=== PATIENT | male | born 1985 | race Caucasian/White ===

== ENCOUNTER 2019-11-11 15:24 | Outpatient (CLI) | payer BC, SELFPAY ==
--- NOTE | 2019-11-11 16:00 | XR_ITS ---
WS: [id number] Orbits, 2 views. HISTORY: Evaluate for metal prior to MRI. No metallic foreign bodies are identified over the orbits or globes. XR/XR eye foreign body [id number] IMPRESSION: No metallic foreign body.
--- NOTE | 2019-11-11 16:45 | MRR_ITS ---
PROCEDURE INFORMATION: Exam: MR Cervical Spine Without Contrast Exam date and time: 11/11/2019 4:07 PM Age: 34 years old Clinical indication: Neck pain; Prior surgery; Surgery type: Tonsils; Additional info: Pain, chronic TECHNIQUE: Imaging protocol: Multiplanar magnetic resonance images of the cervical spine without contrast. COMPARISON: CR Cervical Spine 5 views [id number] 11/03/2018 2:46 PM FINDINGS: Vertebrae: Unremarkable. Spinal cord: Normal signal. No cord compression. 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 There is no disc herniation or foraminal stenosis. C3-C4: There is mild posterior bulging of the C3-C4 disc without focal herniation, or sagittal or foraminal stenosis. C4-C5: No significant disc disease. No significant spinal stenosis. C5-C6: Which there is decreased height of the disc and mild reactive changes in the superior endplate of C6. There is mild diffuse posterior bulging of the disc and there is some uncovertebral hypertrophy more on the right than on the left with mild central canal stenosis narrowing the sagittal diameter of the canal to approximately 9 mm and slight flattening the anterior surface of the cord but no significant cord compression. There is moderate foraminal narrowing on both sides more on the right than on the left. C6-C7: There is severe disc space narrowing and reactive changes in the adjacent endplates with disc osteophyte complex which causes mild central canal stenosis narrowing the sagittal diameter canal to approximately 9 mm without significant cord compression. There is moderate foraminal narrowing on both sides more on the right than on the left. C7-T1: No significant disc disease. No significant spinal stenosis. Vertebral arteries: Expected flow voids in the vertebral arteries. Soft tissues: Unremarkable. MR/MR cervical spin wo con* [id number] IMPRESSION: 1. Degenerative disc changes in the lower cervical spine with mild central canal and foraminal stenosis at C5-C6 and C6-C7. 2. No acute disc herniation is identified. 3. Congenital fusion of C2 and C3
== END 2019-11-11 15:25 | disposition home or self-care (01) ==
LOC: RADSHAW 15:28
PROVIDERS: Family Provider Family Medicine; PCP Family Medicine; Visit Provider Family Medicine
DX: M54.2 Cervicalgia (principal); M43.22 Fusion of spine, cervical region; T15.92XA Foreign body on external eye, part unspecified, left eye, initial encounter; T15.91XA Foreign body on external eye, part unspecified, right eye, initial encounter; X58.XXXA Exposure to other specified factors, initial encounter
CPT/HCPCS: 70030; 72141

== ENCOUNTER → 2020-01-06 08:26 | Outpatient (BNVA) | payer BC, SELFPAY | PROVIDERS: Family Provider Family Medicine; PCP Family Medicine; Referring Provider Licensed Practical Nurse; Visit Provider Anesthesiology Pain Medicine | DX: M48.02 Spinal stenosis, cervical region (principal); M50.020 Cervical disc disorder with myelopathy, mid-cervical region, unspecified level; M47.812 Spondylosis without myelopathy or radiculopathy, cervical region; M43.10 Spondylolisthesis, site unspecified; Z79.891 Long term (current) use of opiate analgesic | CPT/HCPCS: 99205 ==

== ENCOUNTER → 2023-03-12 15:33 | Outpatient (BNVA) | payer BC, SELFPAY | PROVIDERS: Family Provider Family Medicine; PCP Family Medicine; Referring Provider Nurse Practitioner Family; Visit Provider Physician Assistant | DX: M54.2 Cervicalgia (principal) | CPT/HCPCS: 72050 ==

== ENCOUNTER 2023-04-08 08:58 | Outpatient (CLI) | payer BC, SELFPAY ==
--- NOTE | 2023-04-08 09:10 | MR_ITS ---
WS: [id number] MRI CERVICAL SPINE NONCONTRAST HISTORY: neck pain COMPARISON: 11/11/2019 and radiographs 03/12/2023 Technique: Multiplanar, multisequence noncontrast imaging of the cervical spine. Straightening and reversal of the normal cervical lordosis. Disc spaces are narrowed. Most significant narrowing at C5-6 and C6-7. Partial congenital fusion at C 2-3. Marrow edema throughout the C5 and C6 vertebral bodies. C5 retrolisthesis by 3.4 mm. Mild cervic al cord deformity at C5-6 due to the retrolisthesis. No definite myelomalacia. Craniocervical junction, C1 and C2 relationship, odontoid process and soft tissues are normal. C2-C3: Normal. C3-C4: Mild osteophytic ridging and facet arthritis. Very mild central and foraminal narrowing. No si gnificant stenosis. C4-C5: Mild osteophytic ridging. No stenosis. C5-C6: Osteophytic ridging with annular disc bulging. Osteophyte and disc encroachment upon the ventr al thecal sac with deformity resulting in moderate to severe central and bilateral foraminal stenosis . Mild facet arthritis. C6-C7: Osteophytic ridging with annular disc bulging. There is disc and osteophyte encroachment upon the central canal. Moderate to severe central and RIGHT foraminal stenosis. Severe LEFT foraminal darrion nosis due to disc osteophyte disease. C7-T1: No stenosis. Paraspinal soft tissue are normal. MR/MR cervical spin wo con* [id number] IMPRESSION: 1. Progression of cervical stenoses and degenerative disease since 11/11/2019. 2. Retrolisthesis of C5-6. C5 retrolisthesis by 3.4 mm. 3. Moderate to severe central and bilateral foraminal stenosis at C5-6 due to disc and osteophyte disease. 4. Moderate to severe central and RIGHT foraminal stenosis at C6-7 with severe LEFT foraminal stenosis due to disc osteophyte disease. 5. Mild central and foraminal narrowing at C3-4.
== END 2023-04-08 08:59 | disposition home or self-care (01) ==
PROVIDERS: PCP Family Medicine; Visit Provider Physician Assistant
DX: M48.02 Spinal stenosis, cervical region (principal); M47.892 Other spondylosis, cervical region
CPT/HCPCS: 72141

== ENCOUNTER → 2023-04-14 12:08 | Outpatient (BNVA) | payer BC, SELFPAY | PROVIDERS: PCP Family Medicine; Visit Provider Physician Assistant | DX: M47.12 Other spondylosis with myelopathy, cervical region (principal) | CPT/HCPCS: 36415; 80053; 81003; 83036; 85025 ==

== ENCOUNTER 2023-04-14 15:13 | Outpatient (CLI) | payer BC, SELFPAY | END 2023-04-14 15:14 | disposition home or self-care (01) | LOC: SPT 15:14 | PROVIDERS: PCP Family Medicine; Visit Provider Physician Assistant | DX: M54.2 Cervicalgia (principal) | CPT/HCPCS: 97760; L0172 ==

== ENCOUNTER → 2023-05-11 11:17 | Outpatient (BNVA) | payer BC, SELFPAY | PROVIDERS: PCP Family Medicine; Visit Provider Family Medicine | DX: Z01.818 Encounter for other preprocedural examination (principal) | CPT/HCPCS: 80053; 81000; 85025 ==

== ENCOUNTER → 2023-05-18 17:01 | Outpatient (BNVA) | payer BC, SELFPAY | PROVIDERS: PCP Family Medicine; Visit Provider Family Medicine | DX: Z01.818 Encounter for other preprocedural examination (principal) | CPT/HCPCS: 80053 ==

== ENCOUNTER 2023-05-27 10:33 | Inpatient (IN) | payer BC, SELFPAY ==
[2023-05-27] VITALS (13 sets, daily range): BP systolic 129–148; BP diastolic 81–104; PULSE 65–101; RESP 13–18; TEMP 36.1–36.9; O2SAT 96–100
--- NOTE | 2023-05-27 | XR_ITS ---
WS: [id number] XR cervical spine 3V* [id number] REASON FOR EXAM: ACDF C4-7 FINDINGS: Anterior plate and screw fixation with interbody fusion devices C4-C7. Normal spinal alignment. Surgical appliances are intact and in proper position and alignment. IMPRESSION: Anterior cervical fusion without abnormality as above.
[2023-05-27] MEDS: sodium chloride 0.9% 1,000 ML 30 ML IV (06:09)
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
--- NOTE | 2023-05-27 06:58 | ANES.PREANE2 ---
Pre-Anesthetic Assessment Height/Weight: Height 1.91 m Weight 72.575 kg Temp Pulse Resp BP Pulse Ox O2 Del Method 97.4 F L 81 18 136/104 97 Room Air 05/27/23 05:55 05/27/23 05:55 05/27/23 05:55 05/27/23 05:55 05/27/23 05:55 05/27/23 05:56 Preop Diagnosis: Cervical spondylosis with myelopathy and radiculopathy Operation Date: 05/27/23 07:00 Proposed Procedures p ACDF C4/5, 5/6, 6/7:[id number],[id number],[id number] x 3,20296,58817,11669,m47.12(Not Applicable) - Soham Sweeney, DO Familial anesthetic complications: None Was Beta Yousuf taken within 24 hours: N/A Was Clonidine taken within 24 hours: N/A Last intake: Intake Last Liquid Date 05/26/23 Last Liquid Time 23:30 Last Solid Date 05/26/23 Last Solid Time 22:30 Social No alcohol and No tobacco Exam alert, oriented x 3, clear to auscultation bilaterally and regular rate & rhythm Airway Mallampati: Class III Dentition: chipped and full Hepatic lfts - downtrending with alcohol cessation Anesthetic Plan ASA status: 2 Anesthesia: General Risk of > 500 ml blood loss (7ml/kg in children): No Medications/Allergies Home Medications Medication Instructions Recorded Confirmed Last Taken Type cervical collar #1 ea 04/14/23 04/14/23 Unknown Rx Allergies Allergy/AdvReac Type Severity Reaction Status Date / Time No Known Allergies Allergy Verified 05/27/23 05:51 Current Medications Generic Name Dose Route Start Last Admin Trade Name Freq PRN Reason Stop Dose Admin Sodium Chloride 1,000 mls @ 30 mls/hr 05/27/23 05:45 05/27/23 06:09 Sodium Chloride 0.9% IV 05/28/23 05:44 30 mls/hr .Q24H CARL Administration PFSH Anesthesia Medical History Cervical disc disorder with myelopathy of mid-cervical region Cervical stenosis of spine Osteoarthritis of cervical spine Spondylolisthesis, acquired Surgical History History of tonsillectomy Family History Grandfather Heart disease Social History Smoking and tobacco status: current every day smoker cigarettes Packs smoked per day: 0.5 Alcohol intake: current Alcohol intake frequency: 3 or more drinks per day Substance/Drug Use: never Household members: family Marital status: Current occupational status: employed Current occupation: Stock Broker Supervisor- [employer] Data Anesthesia 05/27/23 06:38 Cardiac Studies: No Data to Display
[2023-05-27 07:36] LABS: Anion Gap 16.1 (5-19); Blood Urea Nitrogen 12 mg/dL (6-20); Calcium 10.1 mg/dL (8.5-10.5); Carbon Dioxide 29 mmol/L (22-29); Chloride 96 mmol/L (98-107); Glucose 97 mg/dL (65-115); Osmolality Calculated 284 mOsm/kg (285-295); Potassium 4.1 mmol/L (3.5-5.1); Sodium 137 mmol/L (136-145)
[2023-05-27] MEDS: ceFAZolin 2,000 MG in sodium chloride 0.9% (plus) 50 ML 100 MG IV ×2 (07:40→16:30)
[2023-05-27] MEDS: lidocaine-epi 1% 20 mL INJ INJECTION (08:09)
--- NOTE | 2023-05-27 10:28 | P.OP_ITS ---
Operative Report Date of procedure: May 27, 2023 Pre-op diagnosis: Preop Diagnosis Cervical spondylosis with myelopathy and radiculopathy Post-op diagnosis: same Procedure done: 1. Anterior diskectomy C4/5 2. Anterior diskectomy C5/6 3. Anterior discectomy C6/7 4. Insertion of cage C4/5 5. Insertion of cage C5/6 6. Insertion of Cage C6/7 7. Instrumentation with anterior plate from C4-C7 8. Use of allograft Surgeon: Soham Sweeney State Epidemiologist: Serafin Ireland State Epidemiologist: The surgical garment assembly supervisor, Serafin Ireland, PAC was needed for his expertise under the microscope. He was important and necessary throughout the procedure to complete in a safe and timely manner. He assisted with patient positioning prepping and draping tissue retraction suctioning of the operative field protection of the dural sac and tissue closure Estimated blood loss (mL): 50 Procedure: 1. Anterior diskectomy C4/5 2. Anterior diskectomy C5/6 3. Anterior discectomy C6/7 4. Insertion of cage C4/5 5. Insertion of cage C5/6 6. Insertion of Cage C6/7 7. Instrumentation with anterior plate from C4-C7 8. Use of allograft The patient was taken to the operating room, where he underwent general endotracheal anesthesia without complications. He was then positioned supine on the operating table, and all areas of impingement were well padded. The arms were carefully padded and tucked at his sides. A roll was placed between the shoulder blades.. An x-ray was done to determine the appropriate level for the skin incision. The entire neck was then sterilely prepped and draped in the usual fashion. Neuromonitoring was attached prior to prepping. A transverse skin incision was made and carried down to the platysma muscle. This was then split in line with its fibers. Blunt dissection was carried down medial to the carotid sheath and lateral to the trachea and esophagus until the anterior cervical spine was visualized. A needle was placed into a disc and an x-ray was done to determine its location. The longus colli muscles were then elevated bilaterally with the electrocautery unit. Self-retaining retractors were placed deep to the longus colli muscle. Attention was brought to the C4/5 level that was confirmed on x-ray. A caspar pin was placed into the C4 vertebrae and the C5 vertebrae. The disk space was then distracted. The microscope was then brought in. A radical anterior discectomies were performed at C4/5. This included complete removal of the anterior annulus, nucleus, and posterior annulus. The posterior longitudinal ligament was removed as were the posterior osteophytes. Foraminotomies were then accomplished bilaterally. This was done using a high speed [place], kerrison rongeurs and curretes Once all of this was accomplished, the curved currette was used to check for any residual compression. The central canal was wide open as were the foramen. A high-speed bur was used to remove the cartilaginous endplates above and below the interspace. Bleeding cancellous bone was exposed. The disc space were measured and appropriate size cage were placed sterilely onto the field. Allograft graft was packed into the cages. The cage was then placed and there was good juxtaposition against the bleeding decorticated surfaces and good distraction of each interspace. Attention was brought to the next interspace. The [place] pins were removed. Bone wax was used to prevent any bleeding from occurring at the pin sites. Attention was brought to the C5/6 level that was confirmed on x-ray. A caspar pin was placed into the C5 vertebrae and the C6 vertebrae. The disk space was then distracted. The microscope was then brought in. A radical anterior discectomies were performed at C5/6. This included complete removal of the anterior annulus, nucleus, and posterior annulus. The posterior longitudinal ligament was removed as were the posterior osteophytes. Foraminotomies were then accomplished bilaterally. This was done using a high speed [place], kerrison rongeurs and curretes Once all of this was accomplished, the curved currette was used to check for any residual compression. The central canal was wide open as were the foramen. A high-speed bur was used to remove the cartilaginous endplates above and below the interspace. Bleeding cancellous bone was exposed. The disc space were measured and appropriate size cage were placed sterilely onto the field. Allograft graft was packed into the cages. The cage was then placed and there was good juxtaposition against the bleeding decorticated surfaces and good distraction of each interspace. Attention was brought to the next interspace. The [place] pins were removed. Bone wax was used to prevent any bleeding from occurring at the pin sites. Attention was brought to the C6/7 level that was confirmed on x-ray. A caspar pin was placed into the C6 vertebrae and the C7 vertebrae. The disk space was then distracted. The microscope was then brought in. A radical anterior discectomies were performed at C6/7. This included complete removal of the anterior annulus, nucleus, and posterior annulus. The posterior longitudinal ligament was removed as were the posterior osteophytes. Foraminotomies were then accomplished bilaterally. This was done using a high speed [place], kerrison rongeurs and curretes Once all of this was accomplished, the curved currette was used to check for any residual compression. The central canal was wide open as were the foramen. A high-speed bur was used to remove the cartilaginous endplates above and below the interspace. Bleeding cancellous bone was exposed. The disc space were duyen sured and appropriate size cage were placed sterilely onto the field. Allograft graft was packed into the cages. The cage was then placed and there was good juxtaposition against the bleeding decorticated surfaces and good distraction of each interspace. Attention was brought to the next interspace. The [place] pins were removed. Bone wax was used to prevent any bleeding from occurring at the pin sites. The appropriate size anterior cervical locking plate was chosen and bent into gentle lordosis. Two screws were then placed into each of the vertebral bodies at C4, C5, C6 and C7. There was excellent purchase. A final x-ray was done confirming good position of the hardware and Cages. The locking screws were then applied, also with excellent purchase. Following a final copious irrigation, there was good hemostasis and no dural leaks. The carotid pulse was strong. The wounds were then closed in layers using 2-0 Vicryl suture for the platysma muscle, 2-0 Vicryl suture for the subcutaneo us tissue, and 4-0 monocryl suture in a subcuticular skin closure. Glue was placed followed by application of a sterile dressing. The drain was hooked to bulb suction. A soft collar was applied. The patient was then carefully returned to the supine position on his hospital bed where he was reversed and extubated and taken to the recovery room having tolerated the procedure well.
--- NOTE | 2023-05-27 10:40 | ANE.PACU2 ---
Inpatient post-anesthesia follow up: Airway intact: Yes Vital signs: Temperature 97.5 F Pulse Rate 80 Respiratory Rate 14 Blood Pressure 140/88 Pulse Oximetry 98 Oxygen Delivery Me thod Room Air Oxygen Flow Rate Fraction of Inspir ed Oxygen Hydration adequate: Yes Nausea and vomiting: No Pain level: 1 Mental status: Baseline
[2023-05-27] MEDS: lactated ringers 1,000 ML 90 ML IV ×2 (11:36→23:54)
[2023-05-27] MEDS: HYDROcodone-acetaminophen 5-325 mg Tablet PO ×3 (11:36→21:50)
[2023-05-27] MEDS: docusate sodium 100 mg Capsule PO (17:02)
[2023-05-28] VITALS: BP 151/83; PULSE 100; RESP 15; TEMP 36.9; O2SAT 93
[2023-05-28] MEDS: ceFAZolin 2,000 MG in sodium chloride 0.9% (plus) 50 ML 100 MG IV ×2 (01:21→08:05)
[2023-05-28 04:00] VITALS: BP 163/104; PULSE 81; RESP 18; TEMP 36.9; O2SAT 95
[2023-05-28] MEDS: HYDROcodone-acetaminophen 5-325 mg Tablet PO ×2 (05:55→10:53)
--- NOTE | 2023-05-28 07:33 | P.PN_ITS ---
Subjective Subjective: POD 1 Patient feeling much better reports arms have improved. Mild swallowing difficulty. Denies any headaches, shortness of breath, chest pain. Vitals/I&O/Wt Last Vital Signs Temp 98.5 F 05/28/23 04:00 Pulse 81 05/28/23 04:00 Resp 18 05/28/23 04:00 BP 163/104 05/28/23 04:00 Pulse Ox 95 05/28/23 04:00 O2 Del Method Room Air 05/28/23 04:00 05/27/23 05/28/23 05/28/23 22:59 06:59 14:59 Intake Total 1050 / 2617 50 / 2667 Output Total 110 / 410 Balance 940 / 2207 50 / 2257 Weight last 48 hrs Weight 160 lb Physical Exam Narrative: Patient is alert and oriented x3 with a good general appearance normal mood and affect. Nontender with palpation about the incisional site. Incision appears to be clean and dry without signs of erythema or drainage. No signs of infection. Good motor strength throughout both upper extremities. Appears to fire in all motor groups with 5/5 strength. Hands are warm good cap refill in all digits. Normal sensation to light touch in all dermatomal areas. Urinary Catheter Management: Bean Latex: Cath Placed During This Visit: yes, but has since been removed by the nurse Urinary Catheter Date of Insertion: 05/27/23 Urinary Catheter Time of Insertion: 07:56 Date Urinary Catheter Removed: 05/27/23 Time Urinary Catheter Discontinued: 10:05 Data 05/27/23 06:38 A&P Assessment and plan (1) Status post cervical spinal fusion: Encouraged him to continue walking program no bending lifting or twisting. Continue the [place] J collar. Continue incentive spirometer at home for pulmonary toilet. Will discontinue the Hemovac drain. Will discontinue home this morning he will follow-up in the office in 1 week's time he will call if he is having any problems. Hydrocodone has provided him good relief for his pain. Attestations Medical Necessity Statement*: Discharge home after discontinuing Hemovac drain. Coding Level of Care Code Acute Code for Chg Fwd Diagnoses Status post cervical spinal fusion Z98.1
[2023-05-28 07:41] VITALS: BP 135/95; PULSE 92; RESP 18; TEMP 36.8; O2SAT 96
[2023-05-28] MEDS: docusate sodium 100 mg Capsule PO (09:52)
--- NOTE | 2023-05-28 10:45 | PC.CHAP ---
Pastoral Care Encounter/Spiritual Assessment Type of Contact [] Declined in store demonstrator visit [] Patient/Family/Request visit [] Outpatient visit [] Follow-up visit [] Physician referral [x] Code/Alert [] Routine visit [] Staff referral [] Actively dying [] Patient sleeping [] Family support [] [] Out of room [] Palliative care [] [x] Receiving care in room [] Pre-surgical visit [] Trauma [] Long length of stay [] ICU visit [] Other: Relational/Emotional Strength [x] Patient feels connected with others/family/visitors/staff [] Distress [] Loneliness/isolation [] Abandonment Spirituality of Patient [x] Person of Vonnie [] Attends Orthodox of their Vonnie [x] Believes in Prayer [] Reads Bible or Adventism materials [] There are Spiritual issues to be addressed Biscuit Packer Interventions [x] Prayer [x] Active listening [x] Non-anxious presence [x] Spiritual/emotional support [] Crisis/trauma care [x] Spiritual counseling [] Bereavement support [] Provided bereavement packet [] Provided Bible/devotional materials [] Provided toy/stuffed animal, coloring book to patient or family member [] Provided Communion [] Anointing/[place] [] Salvation [x] Completed spiritual assessment [] Other: Impact on Illness or Injury [] Angry [] Fearful [] Anxious [] Often cries [] Exhaustion [] Unable to work [] Unable to attend scientologist [] Unable to walk/stand [] Unable to read [] Unable to drive [] Unable to eat/drink [] Unable to sleep [] Unable to be with family [] Patient intubated [] Other: Summary urgery on knee well need some reah and recovery time +1 has a good attitude well go home Time spent with patient 10 mins
[2023-05-28 11:42] VITALS: BP 135/95; PULSE 92; RESP 18; TEMP 36.8; O2SAT 96
--- NOTE | 2023-06-02 07:55 | PM.DCS ---
Discharge Providers Date of Admission: 05/27/23 10:33 Date of Discharge: May 28, 2023 Attending Provider at Admission: Soham Sweeney DO Attending Provider at Discharge: Soham Sweeney DO Primary Care Provider: Luis Riley DO Diagnoses at Discharge Discharge Diagnosis (1) Status post cervical spinal fusion: Status: Acute Reason for Visit Reason for Visit: M47.12 Physical Exam Urinary Catheter Management: Bean Latex: Cath Placed During This Visit: yes, but has since been removed by the nurse Urinary Catheter Date of Insertion: 05/27/23 Urinary Catheter Time of Insertion: 07:56 Date Urinary Catheter Removed: 05/27/23 Time Urinary Catheter Discontinued: 10:05 Discharge Data Studies Completed and Pending Completed Studies During Hospitalization Category Date Time Status XR cervical spine 3V* [id number] Routine Exams 05/27/23 Completed Laboratory Results Sodium 137 mmol/L (136-145) 05/27/23 06:38 Potassium 4.1 mmol/L (3.5-5.1) 05/27/23 06:38 Chloride 96 mmol/L (98-107) L 05/27/23 06:38 Carbon Dioxide 29 mmol/L (22-29) 05/27/23 06:38 Anion Gap 16.1 (5-19) 05/27/23 06:38 BUN 12 mg/dL (6-20) 05/27/23 06:38 Creatinine 0.6 mg/dL (0.7-1.2) L 05/27/23 06:38 GFR Calculation 150.0 mL/min (90-130) H 05/27/23 06:38 Glucose 97 mg/dL (65-115) 05/27/23 06:38 Calculated Osmolality 284 mOsm/kg (285-295) L 05/27/23 06:38 Calcium 10.1 mg/dL (8.5-10.5) 05/27/23 06:38 Vitals Last Vital Signs Temp 98.2 F 05/28/23 11:42 Pulse 92 05/28/23 11:42 Resp 18 05/28/23 11:42 BP 135/95 05/28/23 11:42 Pulse Ox 96 05/28/23 11:42 O2 Del Method Room Air 05/28/23 07:41 Discharge Plan Discharge Patient Disposition: Home Condition: Stable Prescriptions: New hydrocodone-acetaminophen 5-325 mg Tablet 1 - 2 tab PO .q4-6 hrs PRN (Reason: Postoperative pain ) Qty: 40 0RF No Action (DME) cervical collar See Rx Instructions .Route .MEDSUPPLY Qty: 1 0RF Rx Instructions: As directed ibuprofen 200 mg Tablet 400 mg PO Q6H PRN (Reason: Pain) Discharge Orders: Discharge Order (Routine); Ordered 05/28/23 Ordered By: Serafin Ireland Referrals: Soham Sweeney DO [Physician] - 06/11/23 9:00 am () Luis Riley DO [Primary Care Provider] - 06/03/23 9:20 am () Discharge Diet: Advance as tolerated Discharge Activity: Limit activity as instructed Patient Instructions: Hydrocodone/Acetaminophen (By mouth), Anterior Cervical Discectomy (GEN), Opioid Safety Activity Restrictions/Additional Instructions: Thank you for choosing [facility] for your care! The following is a list of instructions, from your provider, to follow upon your discharge to ensure you have the optimal recovery from your recent injury or surgery. Anterior Cervical Discectomy and Fusion: What to Expect at Home Your Recovery Follow-up care is a hernández part of your treatment and safety. Be sure to make and go to all appointments, and call your doctor if you are having problems. If you do not already have a follow-up appointment made, call office in the next 1-3 days to make follow up appointment for 1-2 weeks at [phone]. It is also a good idea to know your test results and keep a list of the medicines you take. You can expect your neck to feel stiff or sore after surgery. This should improve in the weeks after surgery. But it may take 4 to 6 months for you to get better completely. You may have trouble sitting or standing in one position for very long and may need pain medicine in the weeks after your surgery. It may take 4 to 6 weeks to get back to your usual activities, but it may depend on what kind of surgery you had. Your throat will feel sore and it may be difficult to swallow for the first 3 days after your surgery. As long as you can get liquids down without difficulty, this should slowly improve, otherwise call our office or seek medical attention if it becomes increasingly difficult to get anything down including liquids. Avoid hot liquids for first 3-5 days. Soothing foods/liquids such as jello, pudding, and luke warm soups are recommended until swallowing improves. Staying elevated will also help, it's advised you keep propped up at while sleeping to help reduce the swelling. You may use an ice pack directly on your incision or around it on the front of your neck, using a cloth to protect your skin; and a heating pad to the back of your neck as needed. Do not use over the counter anti-inflammatory medications (Ibuprofen, Motrin, Aleve, Advil, etc) Taking these meds after having a fusion can delay fusion rates, we recommend you avoid them for the first 3 months after your surgery. Dr. Sweeney may advise you to work with a physical therapist to strengthen the muscles around your neck and back - this will be discussed at your follow - up appointments. The pain or numbness you were having in your arms before surgery should get better or go away completely. This care sheet gives you a general idea about how long it will take for you to recover. But each person recovers at a different pace. Follow the steps below to get better as quickly as possible. How can you care for yourself at home? Activity ? Rest when you feel tired. Getting enough sleep will help you recover. ? Try to walk each day. Start by walking a little more than you did the day before. Bit by bit, increase the amount you walk. Walking boosts blood flow and helps prevent pneumonia and constipation. Walking may also decrease your muscle soreness after surgery. ? No lifting anything that is more that 5 pounds. This may include heavy grocery bags and milk containers, a heavy briefcase or backpack, cat litter or dog food bags, a child, or a vacuum dry cleaner. ? Avoid strenuous activities, such as bicycle riding, jogging, weightlifting, or aerobic exercise, until your doctor says it is okay. ? Do not drive until your follow-up visit after your surgery, or until your doctor says it isokay. ? Avoid taking long car trips for 2 to 4 weeks after surgery. Your neck may become tired and painful from sitting too long in one position. ? You will probably need to take 4 to 6 weeks off from work. It depends on the type of work you do and how you feel. ? You may have sex as soon as you feel able, but avoid positions that put stress on your neck or cause pain. Diet ? You can eat your normal diet. If your stomach is upset, try bland, low-fat foods like plain rice, broiled chicken, toast, and yogurt ? Drink plenty of fluids. If you have kidney, heart, or liver disease and have to limit fluids, talk with your doctor before you increase the amount of fluids you drink. ? You may notice that your bowel movements are not regular right after your surgery. This is common. Try to avoid constipation and straining with bowel movements. You may want to take a fiber supplement every day. If you have not had a bowel movement after a couple of days, ask your doctor about taking a mild laxative. Medicines ? Take pain medicines exactly as directed. 1. If Dr. Sweeney gave you a prescription medicine for pain, take lt as prescribed. 2. Do not take two or more pain medicines at the same time unless the doctor told you to. Many pain medicines have acetaminophen, which is Tylenol. Too much acetaminophen {Tylenol) can be harmful. 3. If you think your pain pill is making you sick to your stomach: 4. Take your pills after meals (unless your doctor has told you not to). 5. Ask your Dr. for a different pain pill. Incisioncare ? Remove your dressing 48 hours after your surgery. Ok to shower and get the incision wet. Do not overtly wash your incision. When done, pad dry, leave open to air thereafter. Avoid creams and ointments directly on your incision. ? Your sutures in the incision will dissolve and fall out on their own. ? Keep the area clean and dry. You may cover it with a gauze bandage if it weeps or rubs against clothing; if you choose to do this, change the dressing everyday. Other instructions ? Use a heating pad, hot water bottle, or gentle massage on your back to reduce stiffness. Avoid putting heat on your incision When should you call for help? ? Call 911 anytime you think you may need emergency care. For example, call if: ? You pass out (lose consciousness). ? You have sudden chest pain and shortness of breath, or you cough upblood. ? You cannot swallow. ? You have severe pain in your neck or back. ? Call your Dr. or seek immediate medical care if: ? You have pain that does not get better after you take pain pills. ? You have loose stitches, or your incision comes open. ? You have blood or fluid draining from the incision. ? You have signs of infection, such as: 1. Increased pain, swelling, warmth, or redness. 2. Red streaks leading from the site. 3. Pus draining from the site. 4. Swollen lymph nodes in your neck or armpits. 5. A fever. ? You have severe pain in your arms. ? You have new or increased weakness or numbness in your arms. ? Watch closely for any changes in your health, and be sure to contact your doctor if: ? You do not have a bowel movement after taking a laxative. Discharge Attestations Time Spent in Discharge Care*: less than 30 min Quality Metrics Clinical Quality Measures [ No reported AMI, CVA or VTE this stay] Coding Level of Care Code Acute Code for Chg Fwd Diagnoses Status post cervical spinal fusion Z98.1
== END 2023-05-28 11:46 | disposition home or self-care (01) | DRG 473 ==
LOC: MEDSURG 10:36
PROVIDERS: Anesthesiology; Admitting Provider Orthopaedic Surgery; PCP Family Medicine; Visit Provider Orthopaedic Surgery
PROC: 0RB30ZZ Excision of Cervical Vertebral Disc, Open Approach (ICD-10-PCS; CPT 22551; principal; 2023-05-27 07:00)
DX: M47.12 Other spondylosis with myelopathy, cervical region (principal); F17.210 Nicotine dependence, cigarettes, uncomplicated
CPT/HCPCS: 36592; 51702; 72040; 76000; 80048; 97110; 97161; 97530; C1713; C1763; C9359; J0330; J0690; J1100; J1170; J2250; J2371; J2405; J2704; J2710; J3010; J3490; J7030; J7120; P9045

== ENCOUNTER → 2023-06-11 08:57 | Outpatient (BNVA) | payer BC, SELFPAY | PROVIDERS: PCP Family Medicine; Visit Provider Orthopaedic Surgery | DX: Z98.1 Arthrodesis status (principal); Z47.89 Encounter for other orthopedic aftercare | CPT/HCPCS: 72040 ==

== ENCOUNTER → 2023-07-09 10:02 | Outpatient (BNVA) | payer BC, SELFPAY | PROVIDERS: PCP Family Medicine; Visit Provider Orthopaedic Surgery | DX: Z98.1 Arthrodesis status; Z47.89 Encounter for other orthopedic aftercare | CPT/HCPCS: 72040 ==

== ENCOUNTER → 2023-08-13 14:40 | Outpatient (BNVA) | payer BC, SELFPAY | PROVIDERS: PCP Family Medicine; Visit Provider Orthopaedic Surgery | DX: Z98.1 Arthrodesis status (principal); Z47.89 Encounter for other orthopedic aftercare | CPT/HCPCS: 72040 ==

== ENCOUNTER → 2023-10-05 11:26 | Outpatient (BNVA) | payer BC, SELFPAY | PROVIDERS: PCP Family Medicine; Visit Provider Nurse Practitioner Family | DX: M54.50 Low back pain, unspecified (principal) | CPT/HCPCS: 81000 ==

== ENCOUNTER → 2023-10-15 07:57 | Outpatient (BNVA) | payer BC, SELFPAY | PROVIDERS: PCP Family Medicine; Visit Provider Physician Assistant | DX: Z98.1 Arthrodesis status (principal); Z47.89 Encounter for other orthopedic aftercare | CPT/HCPCS: 72040 ==

== ENCOUNTER → 2023-12-15 14:53 | Outpatient (BNVA) | payer BC, SELFPAY | PROVIDERS: PCP Family Medicine; Visit Provider Orthopaedic Surgery | DX: Z98.1 Arthrodesis status; M96.0 Pseudarthrosis after fusion or arthrodesis | CPT/HCPCS: 72040 ==

== ENCOUNTER 2023-12-28 07:44 | Outpatient (CLI) | payer BC, SELFPAY ==
--- NOTE | 2023-12-28 08:00 | CT_ITS ---
WS: [id number] CT CERVICAL SPINE HISTORY: neck pain TECHNIQUE: Contiguous 2.0 mm axial imaging performed through the entire cervical spine. Sagittal and coronal reformats also performed. All CT scans at [facility] use at least one of these dose o ptimization techniques: automated exposure control; mA and/or kV adjustment per patient size (include s targeted exams where dose is matched to clinical indication); or iterative reconstruction. DLP: 157.87 mGy.cm COMPARISON: Radiographs 06/11/2023 and 12/15/2023 Status post anterior cervical fusion from C4-C7. Interbody spacers at C4-5, C5-6 and C6-7. Spacers ex tend to the anterior endplates of the vertebral bodies. There is mild anterior wedging of C5 and C6 a nd C7. Reversal of the normal cervical lordosis with slight straightening at C5. Severe anterior brid ging hypertrophic osteophyte disease identified. No acute fracture. LEFT vertebral body anterior scre w at C6 with lucency surrounding it extends through the anterior superior endplate to about the inter body spacer. There is additional very mild lucency surrounding the screws at C7. No displacement of t he vertical plate from the vertebral bodies. Rudimentary disc at C2-3. There is a very mild widening of the C5-6 facet joints. C2-C3: Normal. C3-C4: Mild osteophytic ridging. Shallow LEFT paracentral disc protrusion. C4-C5: Mild diffuse osteophytic ridging. C5-C6: Marked osteophytic ridging, greatest to the RIGHT encroaching upon the ventral thecal sac. Mil d central with bilateral foraminal stenosis due to osteophyte disease. C6-C7: Diffuse osteophytic ridging encroaching upon the ventral thecal sac and narrowing the foramina . Mild central with mild to moderate bilateral foraminal stenosis. C7-T1: Mild osteophytic ridging and probable very shallow RIGHT paracentral disc protrusion. Mild for aminal narrowing. Soft tissues are normal. Lung apices are clear. IMPRESSION: 1. Prior anterior cervical fusion from C4-C7 with interbody spacers. 2. Very slight anterior wedging of C5, C6 and C7 with mild narrowing of the disc spaces. 3. C5-6 facet joint is very slightly asymmetric and widened as compared to the adjacent facet joints . 4. Significant hypertrophic osteophytosis throughout the cervical spine predominantly involving C4-C 7. 5. The LEFT vertebral body screw at C6 with mild surrounding lucency suggesting loosening. 6. Very mild lucency surrounding the screws at C7 suggesting loosening. 7. C3-4, LEFT paracentral disc protrusion. 8. C5-6 and C6-7 mild central stenosis with foraminal stenosis. Foraminal stenosis slightly greater at C6-7. Mild foraminal stenosis at C7-T1.
== END 2023-12-28 07:45 | disposition home or self-care (01) ==
LOC: RAD 07:45
PROVIDERS: PCP Family Medicine; Visit Provider Orthopaedic Surgery
DX: M50.21 Other cervical disc displacement, high cervical region (principal); M48.03 Spinal stenosis, cervicothoracic region; M25.78 Osteophyte, vertebrae; Z98.1 Arthrodesis status
CPT/HCPCS: 72125

== ENCOUNTER → 2024-01-19 08:37 | Outpatient (BNVA) | payer BC, SELFPAY | PROVIDERS: PCP Family Medicine; Visit Provider Orthopaedic Surgery | DX: M54.2 Cervicalgia (principal); Z98.1 Arthrodesis status; M47.12 Other spondylosis with myelopathy, cervical region | CPT/HCPCS: 36415; 80053; 81003; 85025 ==

== ENCOUNTER 2024-02-10 15:36 | Inpatient (IN) | payer BC, SELFPAY ==
[2024-02-10] VITALS (16 sets, daily range): BP systolic 102–151; BP diastolic 56–85; PULSE 61–100; RESP 9–18; TEMP 36.2–37.3; O2SAT 92–100
--- NOTE | 2024-02-10 | XR_ITS ---
WS: [id number] C-ARM RADIOGRAPHS CERVICAL SPINE; 3 IMAGES HISTORY: [facility] PACS COMPARISON: None available. Intraoperative imaging during extensive fusion and stabilization of the cervical spine. Patient is in tubated. Very little soft tissue and osseous detail. IMPRESSION: Intraoperative imaging during extensive cervical fusion.
[2024-02-10] MEDS: sodium chloride 0.9% 1,000 ML 30 ML IV (09:23)
--- NOTE | 2024-02-10 09:42 | ANES.PREANE2 ---
Pre-Anesthetic Assessment Height/Weight: Height 1.91 m Weight 72.575 kg O2 Del Method Room Air 02/10/24 08:50 Operation Date: 02/10/24 10:15 Proposed Procedures p Cervical Posterior Fusion(Not Applicable) - Soham Sweeney DO Familial anesthetic complications: None Was Beta Yousuf taken within 24 hours: N/A Was Clonidine taken within 24 hours: N/A Last intake: Intake Last Liquid Date 02/09/24 Last Liquid Time 23:45 Last Solid Date 02/09/24 Last Solid Time 23:00 Social Alcohol (etoh) and No tobacco Exam alert, oriented x 3, clear to auscultation bilaterally and regular rate & rhythm Airway Mallampati: Class III Dentition: chipped Anesthetic Plan ASA status: 2 Anesthesia: General Risk of > 500 ml blood loss (7ml/kg in children): No Medications/Allergies Home Medications Medication Instructions Recorded Confirmed Last Taken Type intraoperative neurophysiological #1 ea 06/05/23 01/19/24 Unknown Rx monitoring bone growth stimulator #1 ea 01/27/24 Unknown Rx Allergies Allergy/AdvReac Type Severity Reaction Status Date / Time No Known Allergies Allergy Verified 02/09/24 08:22 Current Medications Generic Name Dose Route Start Last Admin Trade Name Freq PRN Reason Stop Dose Admin Sodium Chloride 1,000 mls @ 30 mls/hr 02/10/24 08:45 02/10/24 09:23 Sodium Chloride 0.9% IV 02/11/24 08:44 30 mls/hr .Q24H CARL Administration PFSH Anesthesia Medical History Spondylolisthesis, acquired Cervical disc disorder with myelopathy of mid-cervical region Cervical stenosis of spine Osteoarthritis of cervical spine Surgical History History of tonsillectomy Family History Grandfather Heart disease Social History Smoking and tobacco/nicotine status: current every day tobacco/nicotine user cigarettes Packs smoked per day: 0.5 Alcohol intake: current Alcohol intake frequency: 3 or more drinks per day Substance/Drug Use: never Household members: family Marital status: Current occupational status: employed 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
--- NOTE | 2024-02-10 11:09 | W.PM.OPSUD ---
Surgery/Procedure H&P Update DATE OF PROCEDURE: February 10, 2024 DATE H&P PERFORMED: 02/02/24 H&P UPDATE INFORMATION: I have reviewed H&P completed within last 30 days, I have examined patient prior to procedure and No changes to prior documentation PLANNED PROCEDURE: Operation Date: 02/10/24 10:15 Proposed Procedures p Cervical Posterior Fusion(Not Applicable) - Soham Sweeney DO
[2024-02-10] MEDS: scopolamine 1.5 Patch 1 PATCH TRANSDERMA (11:45)
[2024-02-10] MEDS: ceFAZolin 2,000 MG in sodium chloride 0.9% (plus) 50 ML 100 MG IV ×2 (11:53→19:27)
[2024-02-10] MEDS: lidocaine-epi 1% 20 mL INJ INJECTION (13:39)
[2024-02-10] MEDS: vancomycin 1,000 MG SDV 1000 MG XX (13:40)
--- NOTE | 2024-02-10 13:51 | P.OP_ITS ---
Operative Report Date of procedure: February 10, 2024 Pre-op diagnosis: Nonunion cervical spine Post-op diagnosis: same Procedure done: 1. C4-C7 instrumentation 2. C4-C7 posterior fusion 3. Use of autograft 4. Use of allograft Surgeon: Soham Sweeney DO Estimated blood loss (mL): 30 Procedure: 1. C4-C7 instrumentation 2. C4-C7 posterior fusion 3. Use of autograft 4. Use of allograft Patient is brought to the operative suite after Anesthesia was placed in a prone position. All areas impingement well-padded. Neuromonitoring used throughout the case. Patient was then prepped and draped in normal sterile fashion. Skin sutures made over the posterior cervical spine from C4-C7 level. Subperiosteal dissection was made out to the lateral masses of C4 bilaterally C5 bilaterally C6 bilaterally and C7 bilaterally. The lateral masses were exposed the high-speed bur was used to start the remotely piloted vehicle controller hole. Then the drill was used to make a 12 mm hole and then a screw was placed into the lateral mass in the upper outer corner. This was repeated at C4 bilaterally C5 bilaterally C6 bilaterally and C7 bilaterally. Rods were then placed bilaterally from C4-C7. The screw caps were torqued down to lock the rods in position. C-arm was brought in to ensure everything was in appropriate position. The wound was irrigated. Then the lamina and lateral masses were decorticated as well as the intra-articular spaces. The ostium bone graft was packed into the lateral gutters. Spinous processes were bit down and used as bone graft as well. We was then closed in a layered fashion with 0 Vicryl 2-0 Vicryl and Monocryl suture. Sterile dressings were applied collar was placed and patient was transferred to the PACU in stable condition.
[2024-02-10] MEDS: fentaNYL 50 mcg/mL INJ 2mL IVP (15:11)
--- NOTE | 2024-02-10 15:17 | SUR.PHASEI ---
15:00 PT A+O X3. VENTILATING WELL. ROM AND SENSATION IN ALL 4 EXTREMITIES. C/O MILD NECK PAIN. FAMILY AT BEDSIDE. 15:10 MEDICATED FOR PAIN.
--- NOTE | 2024-02-10 15:33 | SUR.PHASEI ---
15:30 MODERATE RELIEF OF PAIN. REPORT CALLED TO AVILA VINSON.
--- NOTE | 2024-02-10 15:39 | SUR.PHASEI ---
15:40 PT TRANSPORTED TO 268 BED.
--- NOTE | 2024-02-10 15:42 | ANE.PACU2 ---
Inpatient post-anesthesia follow up: Airway intact: Yes Vital signs: Temperature 98.0 F Pulse Rate 78 Respiratory Rate 14 Blood Pressure 112/76 Pulse Oximetry 92 Oxygen Delivery Me thod Room Air Oxygen Flow Rate 8 Fraction of Inspir ed Oxygen Hydration adequate: Yes Nausea and vomiting: No Pain level: 1 Mental status: Baseline
[2024-02-10] MEDS: lactated ringers 1,000 ML 90 ML IV (16:24)
[2024-02-10] MEDS: HYDROcodone-acetaminophen 5-325 mg Tablet PO ×2 (17:36→22:23)
[2024-02-10] MEDS: docusate sodium 100 mg Capsule PO (17:36)
[2024-02-10] MEDS: ketorolac 30 mg/mL INJ IVP (17:36)
[2024-02-11] VITALS: BP 99/58; PULSE 61; RESP 16; TEMP 37.2; O2SAT 94
[2024-02-11] MEDS: lactated ringers 1,000 ML 90 ML IV (03:03)
[2024-02-11] MEDS: ceFAZolin 2,000 MG in sodium chloride 0.9% (plus) 50 ML 100 MG IV (03:03)
[2024-02-11] MEDS: HYDROcodone-acetaminophen 5-325 mg Tablet PO ×2 (03:04→07:50)
[2024-02-11 04:00] VITALS: BP 117/74; PULSE 60; RESP 16; TEMP 37; O2SAT 96
[2024-02-11] MEDS: docusate sodium 100 mg Capsule PO (07:50)
[2024-02-11 08:00] VITALS: BP 121/75; PULSE 73; RESP 20; TEMP 36.4; O2SAT 97
--- NOTE | 2024-02-11 08:43 | PC.NURSE ---
Hemovac drain discontinued per Dr. Sweeney. 2x2 and biooclussive dressing applied. Pt tolerated well.
[2024-02-11 09:09] VITALS: BP 121/75; PULSE 73; RESP 20; TEMP 36.4; O2SAT 97
--- NOTE | 2024-02-11 09:35 | PC.NURSE ---
Discharge instructions provided to pt. NO questions or concerns voiced at this time. To private vehicle via wheelchair with all belongings. Girlfriend will drive pt. home.
--- NOTE | 2024-02-12 10:18 | PM.DCS ---
Discharge Providers Date of Admission: 02/10/24 15:36 Date of Discharge: February 11, 2024 Attending Provider at Admission: Soham Sweeney DO Attending Provider at Discharge: Soham Sweeney DO Primary Care Provider: Luis Riley DO Reason for Visit Reason for Visit: M47.12 Physical Exam Urinary Catheter Management: Bean: Cath Placed During This Visit: yes, but has since been removed by the nurse Reason for Continuing Indwelling Catheter: Decision to DC Catheter Urinary Catheter Date of Insertion: 02/10/24 Urinary Catheter Time of Insertion: 12:04 Date Urinary Catheter Removed: 02/11/24 Time Urinary Catheter Discontinued: 05:56 Discharge Data Studies Completed and Pending Completed Studies During Hospitalization Category Date Time Status XR lumbar spine 2-3V* [id number] Routine Exams 02/10/24 00:00 Completed Laboratory Results Blood Type A Negative 02/10/24 09:05 Rho(D) Type Rh negative 02/10/24 09:05 Antibody Screen Negative 02/10/24 09:05 Vitals Last Vital Signs Temp 97.6 F 02/11/24 09:09 Pulse 73 02/11/24 09:09 Resp 20 H 02/11/24 09:09 BP 121/75 02/11/24 09:09 Pulse Ox 97 02/11/24 09:09 O2 Del Method Room Air 02/11/24 08:00 O2 Flow Rate 8 02/10/24 14:11 Discharge Plan Discharge Patient Disposition: Home Condition: Stable Prescriptions: New hydrocodone-acetaminophen 5-325 mg tablet 1 - 2 tab PO .Q4-6H Qty: 40 0RF No Action (DME) intraoperative neurophysiological monitoring See Rx Instructions .Route .MEDSUPPLY Qty: 1 0RF Rx Instructions: As directed (DME) bone growth stimulator See Rx Instructions .Route .MEDSUPPLY Qty: 1 0RF Rx Instructions: As directed Discharge Orders: Discharge Order (Routine); Ordered 02/11/24 Ordered By: Soham Sweeney Referrals: Soham Sweeney DO [Physician] - 02/25/24 8:30 am Discharge Diet: Advance as tolerated Discharge Activity: Limit activity as instructed Patient Instructions: Hydrocodone/Acetaminophen (By mouth), Anterior Posterior Spinal Fusion (DC), Opioid Safety Activity Restrictions/Additional Instructions: Thank you for choosing [facility] for your care! The following is a list of instructions, from your provider, to follow upon your discharge to ensure you have the optimal recovery from your recent injury or surgery. Anterior Cervical Discectomy and Fusion: What to Expect at Home Your Recovery Follow-up care is a hernández part of your treatment and safety. Be sure to make and go to all appointments, and call your doctor if you are having problems. If you do not already have a follow-up appointment made, call office in the next 1-3 days to make follow up appointment for 2 weeks at [phone]. It is also a good idea to know your test results and keep a list of the medicines you take. You can expect your neck to feel stiff or sore after surgery. This should improve in the weeks after surgery. But it may take 4 to 6 months for you to get better completely. You may have trouble sitting or standing in one position for very long and may need pain medicine in the weeks after your surgery. It may take 4 to 6 weeks to get back to your usual activities, but it may depend on what kind of surgery you had. Your throat will feel sore and it may be difficult to swallow for the first 3 days after your surgery. As long as you can get liquids down without difficulty, this should slowly improve, otherwise call our office or seek medical attention if it becomes increasingly difficult to get anything down including liquids. Avoid hot liquids for first 3-5 days. Soothing foods/liquids such as jello, pudding, and luke warm soups are recommended until swallowing improves. Staying elevated will also help, it's advised you keep propped up at while sleeping to help reduce the swelling. You may use an ice pack directly on your incision or around it on the front of your neck, using a cloth to protect your skin; and a heating pad to the back of your neck as needed. Do not use over the counter anti-inflammatory medications (Ibuprofen, Motrin, Aleve, Advil, etc) Taking these meds after having a fusion can delay fusion rates, we recommend you avoid them for the first 3 months after your surgery[address] Dr. Sweeney may advise you to work with a physical therapist to strengthen the muscles around your neck and back - this will be discussed at your follow - up appointments. The pain or numbness you were having in your arms before surgery should get better or go away completely. This care sheet gives you a general idea about how long it will take for you to recover. But each person recovers at a different pace. Follow the steps below to get better as quickly as possible. How can you care for yourself at home? Activity ? Rest when you feel tired. Getting enough sleep will help you recover. ? Try to walk each day. Start by walking a little more than you did the day before. Bit by bit, increase the amount you walk. Walking boosts blood flow and helps prevent pneumonia and constipation. Walking may also decrease your muscle soreness after surgery. ? No lifting anything that is more that 5 pounds. This may include heavy grocery bags and milk containers, a heavy briefcase or backpack, cat litter or dog food bags, a child, or a vacuum industrial cleaner. ? Avoid strenuous activities, such as bicycle riding, jogging, weightlifting, or aerobic exercise, until your doctor says it is okay. ? Do not drive until your follow-up visit after your surgery, or until your doctor says it isokay. ? Avoid taking long car trips for 2 to 4 weeks after surgery. Your neck may become tired and painful from sitting too long in one position. ? You will probably need to take 4 to 6 weeks off from work. It depends on the type of work you do and how you feel. ? You may have sex as soon as you feel able, but avoid positions that put stress on your neck or cause pain. Diet ? You can eat your normal diet. If your stomach is upset, try bland, low-fat foods like plain rice, broiled chicken, toast, and yogurt ? Drink plenty of fluids. If you have kidney, heart, or liver disease and have to limit fluids, talk with your doctor before you increase the amount of fluids you drink. ? You may notice that your bowel movements are not regular right after your surgery. This is common. Try to avoid constipation and straining with bowel movements. You may want to take a fiber supplement every day. If you have not had a bowel movement after a couple of days, ask your doctor about taking a mild laxative. Medicines ? Take pain medicines exactly as directed. 1. If Dr. Sweeney gave you a prescription medicine for pain, take lt as prescribed. 2. Do not take two or more pain medicines at the same time unless the doctor told you to. Many pain medicines have acetaminophen, which is Tylenol. Too much acetaminophen {Tylenol) can be harmful. 3. If you think your pain pill is making you sick to your stomach: 4. Take your pills after meals (unless your doctor has told you not to). 5. Ask your Dr. for a different pain pill. Incisioncare ? Remove your dressing 48hours after your surgery. Ok to shower and get the incision wet. Do not overtly wash your incision. When done, pad dry, leave open to air thereafter. Avoid creams and ointments directly on your incision. ? Your sutures in the incision will dissolve and fall out on their own. ? Keep the area clean and dry. You may cover it with a gauze bandage if it weeps or rubs against clothing; if you choose to do this, change the dressing everyday. Other instructions ? Use a heating pad, hot water bottle, or gentle massage on your back to reduce stiffness. Avoid putting heat on your incision When should you call for help? ? Call 911 anytime you think you may need emergency care. For example, call if: ? You pass out (lose consciousness). ? You have sudden chest pain and shortness of breath, or you cough upblood. ? You cannot swallow. ? You have severe pain in your neck or back. ? Call your Dr. or seek immediate medical care if: ? You have pain that does not get better after you take pain pills. ? You have loose stitches, or your incision comes open. ? You have blood or fluid draining from the incision. ? You have signs of infection, such as: 1. Increased pain, swelling, warmth, or redness. 2. Red streaks leading from the site. 3. Pus draining from the site. 4. Swollen lymph nodes in your neck or armpits. 5. A fever. ? You have severe pain in your arms. ? You have new or increased weakness or numbness in your arms. ? Watch closely for any changes in your health, and be sure to contact your doctor if: ? You do not have a bowel movement after taking a laxative. Discharge Attestations Time Spent in Discharge Care*: less than 30 min Quality Metrics Clinical Quality Measures [ No reported AMI, CVA or VTE this stay] Coding Level of Care Code Acute Code for Chg Fwd
== END 2024-02-11 09:36 | disposition home or self-care (01) | DRG 473 ==
LOC: MEDSURG 15:37
PROVIDERS: Admitting Provider Orthopaedic Surgery; PCP Family Medicine; Visit Provider Orthopaedic Surgery
PROC: 0RG2071 Fusion of 2 or more Cervical Vertebral Joints with Autologous Tissue Substitute, Posterior Approach, Posterior Column, Open Approach (ICD-10-PCS; CPT 22600; principal; 2024-02-10 09:55)
DX: M47.12 Other spondylosis with myelopathy, cervical region (principal); M43.12 Spondylolisthesis, cervical region; M48.02 Spinal stenosis, cervical region; F17.210 Nicotine dependence, cigarettes, uncomplicated; F10.10 Alcohol abuse, uncomplicated
CPT/HCPCS: 36415; 51702; 72100; 76000; 86850; 86900; 97116; 97161; C1713; C9359; J0131; J0330; J0690; J1100; J1170; J1200; J1885; J2250; J2270; J2405; J2704; J2710; J3010; J3370; J3490; J7030; J7120

== ENCOUNTER → 2024-03-24 07:51 | Outpatient (BNVA) | payer BC, SELFPAY | PROVIDERS: PCP Family Medicine; Visit Provider Orthopaedic Surgery | DX: Z98.1 Arthrodesis status (principal) | CPT/HCPCS: 72040 ==

== ENCOUNTER → 2024-08-09 13:44 | Outpatient (BNVA) | payer SELFPAY | PROVIDERS: PCP Family Medicine; Visit Provider Orthopaedic Surgery | DX: Z98.1 Arthrodesis status (principal) | CPT/HCPCS: 72040 ==

== ENCOUNTER → 2024-10-24 14:21 | Outpatient (BNVA) | payer SELFPAY | PROVIDERS: PCP Family Medicine; Visit Provider Nurse Practitioner Family | DX: M79.631 Pain in right forearm (principal) | CPT/HCPCS: 73090 ==

== ENCOUNTER → 2025-02-16 08:38 | Outpatient (BNVA) | payer SELFPAY | PROVIDERS: PCP Family Medicine; Visit Provider Orthopaedic Surgery | DX: Z98.1 Arthrodesis status (principal) | CPT/HCPCS: 72040 ==

== ENCOUNTER → 2025-05-02 08:43 | Outpatient (BNVA) | payer SELFPAY | PROVIDERS: PCP Family Medicine; Visit Provider Orthopaedic Surgery | DX: M54.2 Cervicalgia (principal); Z98.1 Arthrodesis status | CPT/HCPCS: 72040 ==

== ENCOUNTER → 2025-09-25 11:30 | Outpatient (BNVA) | payer MEDICAID, SELFPAY | PROVIDERS: PCP Family Medicine; Visit Provider Nurse Practitioner Family | DX: R74.8 Abnormal levels of other serum enzymes (principal); F10.20 Alcohol dependence, uncomplicated; G57.93 Unspecified mononeuropathy of bilateral lower limbs | CPT/HCPCS: 80053; 80061; 82306; 82607; 82746; 84425; 84590; 85025 ==

== ENCOUNTER → 2025-09-28 07:45 | Outpatient (BNVA) | payer MEDICAID, SELFPAY | PROVIDERS: PCP Family Medicine; Visit Provider Orthopaedic Surgery | DX: M54.2 Cervicalgia (principal); Z98.1 Arthrodesis status; Z47.89 Encounter for other orthopedic aftercare | CPT/HCPCS: 72050 ==

== ENCOUNTER 2025-10-10 06:48 | Outpatient (CLI) | payer MEDICAID, SELFPAY ==
--- NOTE | 2025-10-10 07:00 | CT_ITS ---
WS: [id number] CT CERVICAL SPINE HISTORY: Neck pain TECHNIQUE: Contiguous 2.0 mm axial imaging performed through the entire cervical spine. Sagittal and coronal reformats also performed. All CT scans at [facility] use at least one of these dose optimization techniques: automated exposure control; mA and/or kV adjustment per patient size (includes targeted exams where dose is matched to clinical indication); or iterative reconstruction. DLP: 165.87 mGy.cm COMPARISON: 12/28/2023 Anterior cervical plate and screw fixation from C4-C7. Interbody spacers at C4- 5, C5-6 and C6-7. Reidentified is mild anterior wedging of C5 and C6. No lucencies surrounding the screws. Additional posterior fusion hardware has been placed since 12/28/2023. Otis and screw fixation extends from C4-C7. Hardware appears intact. No lucency surrounding the screws. Facet screw at C7 on the RIGHT extends into the C7-T1 facet joint. 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 C2-C3: Normal. C3-C4: Mild osteophytic ridging. Very minimal LEFT foraminal narrowing. C4-C5: Osteophytic ridging no stenosis. C5-C6: Osteophytic ridging greatest on the RIGHT. Mild RIGHT foraminal stenosis. C6-C7: Osteophytic ridging greatest RIGHT paracentral. Moderate RIGHT and mild LEFT foraminal stenosis. C7-T1: No stenosis. Emphysematous disease at the lung apices. CT/CT cervical spin wo con* [id number] IMPRESSION: 1. Stable anterior cervical fusion from C4-C7 with interbody spacers. 2. New posterior fusion hardware extending from C4-C7. 3. No lucency surrounding the screws. 4. Moderate RIGHT and mild LEFT foraminal stenosis at C6-7 predominantly due t o hypertrophic osteophytes. 5. Stable mild anterior wedging of C5 and C6.
== END 2025-10-10 06:49 | disposition home or self-care (01) ==
LOC: RAD 06:49
PROVIDERS: PCP Family Medicine; Visit Provider Orthopaedic Surgery
DX: Z98.1 Arthrodesis status (principal); M48.02 Spinal stenosis, cervical region; M48.52XA Collapsed vertebra, not elsewhere classified, cervical region, initial encounter for fracture; X58.XXXA Exposure to other specified factors, initial encounter; M43.22 Fusion of spine, cervical region
CPT/HCPCS: 72125